=== PATIENT | female | born 1945 | race Asian ===

== ENCOUNTER 2016-04-11 13:49 | Outpatient (CLI) | payer MEDICARE, OTHER | END 2016-04-11 13:50 | disposition home or self-care (01) | DX: M16.12 Unilateral primary osteoarthritis, left hip (principal) ==

== ENCOUNTER 2016-05-20 14:07 | Outpatient (CLI) | payer MEDICARE, OTHER | END 2016-05-20 14:08 | disposition home or self-care (01) | DX: Z79.890 Hormone replacement therapy (principal); Z78.0 Asymptomatic menopausal state ==

== ENCOUNTER 2016-05-20 14:08 | Outpatient (CLI) | payer MEDICARE, OTHER | END 2016-05-20 14:09 | disposition home or self-care (01) | DX: Z12.31 Encounter for screening mammogram for malignant neoplasm of breast (principal) ==

== ENCOUNTER 2016-07-17 14:02 | Outpatient (CLI) | payer MEDICARE, OTHER | END 2016-07-17 14:03 | disposition home or self-care (01) | DX: R05 Cough (principal); Z98.890 Other specified postprocedural states ==